=== PATIENT | male | born 1980 | race Caucasian/White ===

== ENCOUNTER 2024-10-07 08:53 | Outpatient (CLI) | payer OTHER | END 2024-10-07 08:54 | disposition home or self-care (01) | LOC: CSHSLEEP 08:53 | PROVIDERS: ATTEND Internal Medicine | DX: G47.33 Obstructive sleep apnea (adult) (pediatric) (principal); R53.83 Other fatigue; E66.9 Obesity, unspecified; Z68.38 Body mass index [BMI] 38.0-38.9, adult; R06.83 Snoring | CPT/HCPCS: 95800 ==